=== PATIENT | female | born 1970 | race Hispanic/Latino ===

== ENCOUNTER 2019-06-02 16:50 | Emergency (ER) | payer BC ==
--- NOTE | 2019-06-02 17:34 | RAD ---
Exam:4 views right knee HISTORY: Pain COMPARISON: None FINDINGS: Preserved joint spaces. No fracture or malalignment. No joint effusion. IMPRESSION: Unremarkable right knee radiograph series
--- NOTE | 2019-06-02 17:45 | RAD ---
Exam:4 views left knee HISTORY: Pain COMPARISON: None FINDINGS: Preserved joint spaces. No joint effusion. No fracture or malalignment. IMPRESSION: Unremarkable left knee 4 views
== END 2019-06-02 18:06 | disposition home or self-care (01) ==
LOC: NAV ERS 16:50
DX: S80.12XA Contusion of left lower leg, initial encounter (principal); S80.11XA Contusion of right lower leg, initial encounter; E11.9 Type 2 diabetes mellitus without complications; V89.2XXA Person injured in unspecified motor-vehicle accident, traffic, initial encounter